=== PATIENT | female | born 1955 | race Caucasian/White ===

== ENCOUNTER 2016-04-22 13:06 | Emergency (ER) | payer OTHER ==
[2016-04-22 13:11] VITALS: TEMP 97.5
--- NOTE | 2016-04-22 14:10 | EDPHY ---
H & P Stated Complaint: feels like she needs a paracentesis, last was 2.5 weeks ago @ [facility] [place] Source: Patient Exam Limitations: No limitations - Personal History Current Tetanus/Diphtheria Vaccine: Yes Current Tetanus Diphtheria and Acellular Pertussis (TDAP): Yes - Medical/Surgical History Hx Asthma: No Hx Chronic Respiratory Disease: No Hx Diabetes: No Hx Cardiac Disease: No Hx Renal Disease: No Hx Cirrhosis: Yes Hx Alcoholism: Yes Hx HIV/AIDS: No Hx Splenectomy or Spleen Trauma: No Other PMH: pmh- cirrhosis, etoh (sober) - Social History Smoking Status: Never smoked Time Seen by Provider: 04/22/16 13:58 HPI/ROS: CHIEF COMPLAINT: Recurrent ascites HISTORY OF PRESENT ILLNESS: The patient presents to the ED with recurrent ascites. She has a history of end-stage liver disease from alcohol abuse. The patient reports he was unable to schedule a paracentesis through her regular GI doctor. She reports her last paracentesis was approximately 2 and half weeks ago. The patient denies significant dyspnea. She has no complaints of fever or severe abdominal pain. She denies dysuria or additional acute complaints. The patient tells me that she recently changed insurance and reportedly cannot be seen by her regular electrical assembly supervisor anymore. She has not yet re- established care with a new electrical assembly supervisor. REVIEW OF SYSTEMS: A comprehensive 10 point review of systems is otherwise negative aside from elements mentioned in the history of present illness. (Dwayne Cotton) - Physical Exam Exam: General Appearance: Thin female, no acute distress Eyes: Pupils equal and round no pallor or injection ENT, Mouth: Mucous membranes moist Respiratory: There are no retractions, lungs are clear to auscultation Cardiovascular: Regular rate and rhythm Gastrointestinal: Distended, tense ascites, no significant peritoneal signs Neurological: A&O, normal motor function, normal sensory exam, normal cranial nerves Skin: Warm and dry, no rashes Musculoskeletal: Neck is supple nontender Extremities: symmetrical, full range of motion Psychiatric: Patient is oriented X 3, there is no agitation (Dwayne Cotton) Constitutional: Initial Vital Signs Temperature (C) 36.4 C 04/22/16 13:06 Heart Rate 103 H 04/22/16 13:06 Respiratory Rate 18 04/22/16 13:06 Blood Pressure 154/92 H 04/22/16 13:06 O2 Sat (%) 97 04/22/16 13:06 O2 Delivery Mode Room Air Allergies/Adverse Reactions: Penicillins Allergy (Verified 04/22/16 13:07) Home Medications: Medication Instructions Recorded Furosemide 04/22/16 Spironolactone 04/22/16 Medical Decision Making ED Course/Re-evaluation: The patient presents the emergency department with recurrent tense ascites from chronic liver disease. She clinically has no evidence of peritonitis. I have ordered a therapeutic paracentesis on the patient at 2:00 p.m.. Patient has been given the contact number of our on-call electrical assembly supervisor. I do anticipate the patient will be able to be discharged from the emergency department following her paracentesis. The patient will be turned over to Dr. Marinelli pending her paracentesis. Plan will be for discharge to home following an expected uneventful paracentesis. (Dwayne Cotton) Patient returned from IR Paracentesis 6.7 L removed. Tolerated well. No low BP. No complaints. Abd soft nt. Getting Albumin replacement, then home. Denies Pain, fever/vomiting. Feels much better. (Nathaniel Marinelli) Differential Diagnosis: Differential diagnosis considered includes spontaneous bacterial peritonitis, refractory ascites, congestive heart failure (Dwayne Cotton) - Data Points Laboratory Results: Laboratory Results 04/22/16 14:10 04/22/16 14:10 Medications Given: Discontinued Medications Albumin Human (Flexbumin 25 % (Premix)) 200 mls @ 0 mls/hr IV ONCE ONE PRN Reason: As Directed Stop: 04/22/16 18:17 Last Admin: 04/22/16 18:35 Dose: 200 mls Departure - Departure Disposition: Home, Routine, Self-Care Clinical Impression: Cirrhosis, Ascites Condition: Good Instructions: Ascites (ED) Additional Instructions: 1. Please follow up with our on-call electrical assembly supervisor if you are unable to be seen by your regular electrical assembly supervisor secondary to insurance reasons. You have been given the contact information. 2. Please return to the ED for markedly worsening pain, fever, vomiting or other concerns. Referrals: Lam Frazier MD [Medical Doctor] - As per Instructions
[2016-04-22 14:37] LABS: % IMMATURE GRANULYOCYTES 0.4 % (0.0-1.1); ABSOLUTE IMMATURE GRANULOCYTES 0.03 10^3/uL (0.00-0.10); ADD DIFF? NO; ADD MORPH? NO; ADD SCAN? NO; ATYPICAL LYMPHOCYTE FLAG 10 (0-99); FRAGMENT RBC FLAG 0 (0-99); HEMATOCRIT 38.6 % (38.0-47.0); HEMOGLOBIN 13.5 g/dL (12.6-16.3); LEFT SHIFT FLG 0 (0-99); LIPEMIA HEMOLYSIS FLAG 90 (0-99); MEAN CELL HEMOGLOBIN 34.8 pg (27.9-34.1); MEAN CELL VOLUME 99.5 fL (81.5-99.8); MEAN PLATELET VOLUME 9.2 fL (8.7-11.7); PLATELET CLUMPS FLAG 0 (0-99); PLATELET COUNT 178 10^3/uL (150-400); RED BLOOD CELL COUNT 3.88 10^6/uL (4.18-5.33); RED CELL DISTRIBUTION WIDTH 14.9 % (11.5-15.2)
[2016-04-22 14:43] LABS: INR 1.25 (0.83-1.16); PROTIME(PATIENT) 15.7 SEC (12.0-15.0)
[2016-04-22 14:52] LABS: ANION GAP 5 mEq/L (8-16); CALCIUM 8.3 mg/dL (8.5-10.4); CARBON DIOXIDE 29 mEq/l (22-31); CHLORIDE 97 mEq/L (97-110); CREATININE 0.5 mg/dL (0.6-1.0); GLOMERULAR FILTRATION RATE > 60; GLUCOSE 137 mg/dL (70-100); SODIUM 131 mEq/L (134-144)
[2016-04-22 14:53] VITALS: RESP 16
[2016-04-22] MEDS ORDERED: NA BICARBONATE 50 MEQ/50 ML VIAL ONE (16:02)
[2016-04-22] MEDS ORDERED: LIDOCAINE 1% 30 ML SDV ONE (16:02)
[2016-04-22] MEDS ORDERED: ALBUMIN 25% 200 ML IV ONE (18:16)
--- NOTE | 2016-04-22 18:21 | US ---
Ultrasound-guided paracentesis Indication: Recurrent effusion. Informed consent: Obtained from the patient. Risks and benefits were discussed. Crosscutting Measure: Patient's current list of medications including all known prescriptions, over- the-counters, herbals, and vitamin/mineral/dietary supplements are reviewed. Medications' name, dosa ge, frequency, and route of administration are confirmed. The patient is a non-smoker. Prophylactic Antibiotic: Cefazolin was not ordered and administered for antimicrobial prophylaxis be cause it was not medically necessary. VTE Prophylaxis: There is not an order for VTE prophylaxis to be given within 24 hours of the proced ure end time. VTE prophylaxis was not given because it was not medically necessary. Technique: Patient was placed in supine position. A "timeout" procedure was performed to identify t he correct patient and the correct procedure. 1% Xylocaine was used for local anesthetic. All [place] ents of maximal sterile barrier technique including cap, mask, sterile gown, sterile gloves, large st erile sheet, hand hygiene, and 2% chlorhexidine for cutaneous antisepsis, followed. Ultrasound evaluation of potential access site was performed. A permanent recording was created for the patient's record. When ultrasound is used, sterile gel and probe covers are used. Right lower quadrant approach was chosen. A 6-Bengali Yueh needle was inserted into the abdomen, and p aracentesis was performed. A total of 6.7 liters were drained. A post drainage ultrasound shows very little residual fluid. Patient tolerated the procedure well. Impression: Right lower quadrant ultrasound-guided paracentesis yielding 6.7 liters. Plan: Return to Emergency Department for albumin.
[2016-04-22 19:10] VITALS: BP 134/71; PULSE 83; O2SAT 98
== END 2016-04-22 19:09 | disposition home or self-care (01) ==
PROC: 0W9H3ZZ Drainage of Retroperitoneum, Percutaneous Approach (ICD-10-PCS; principal; 2016-04-22)
DX: R18.8 Other ascites (principal); K74.60 Unspecified cirrhosis of liver
CPT/HCPCS: 96374; P9047

== ENCOUNTER → 2016-04-26 | Outpatient (CLI) | payer OTHER ==
[~2016-04-26] MED LIST: ALBUMIN 25% 100 ML SOLN IV ONE; LIDOCAINE 1% 30 ML SDV ONE; NA BICARBONATE 50 MEQ/50 ML VIAL ONE
--- NOTE | 2016-04-26 15:29 | US ---
Ultrasound-Guided Paracentesis History: Ascites. Crosscutting Measure #226: Current tobacco user: no. Informed consent was obtained. The possibility of infection, bleeding, and bowel injury were discusse d. Technique: A dominant pocket of ascitic fluid was localized in the left lower quadrant. The skin was then prepped and draped in sterile fashion. Local and deep anesthesia was applied with 1% lidocaine. A small skin rosette was applied through which the paracentesis catheter was inserted into the ascitic fluid. 8000 mL of fluid were removed using vacuum technique. The fluid was serous. At the end of the procedure, the catheter was removed, a sterile bandage applied, and the patient discharged from the [facility]. A specimen was sent to the Laboratory for bacteriology and cytology. Impression: Successful 8000 mL paracentesis with ultrasound guidance.
== END ==
LOC: FIMAGING 13:09
PROVIDERS: ATTEND Internal Medicine
PROC: 0W9F3ZZ Drainage of Abdominal Wall, Percutaneous Approach (ICD-10-PCS; principal; 2016-04-26)
DX: R18.8 Other ascites (principal)
CPT/HCPCS: P9047

== ENCOUNTER → 2016-05-09 | Outpatient (CLI) | payer OTHER ==
[~2016-05-09] MED LIST changes: -LIDOCAINE 1% 30 ML SDV ONE
== END ==
LOC: FIMAGING 08:52
PROVIDERS: ATTEND Internal Medicine
PROC: 0W9G3ZZ Drainage of Peritoneal Cavity, Percutaneous Approach (ICD-10-PCS; principal; 2016-05-09)
DX: R18.8 Other ascites (principal)
CPT/HCPCS: P9047

== ENCOUNTER → 2016-05-23 | Outpatient (CLI) | payer OTHER ==
[~2016-05-23] MED LIST changes: -ALBUMIN 25% 100 ML SOLN IV ONE; +LIDOCAINE 1% 30 ML SDV ONE
== END ==
LOC: FIMAGING 08:53
PROVIDERS: ATTEND Internal Medicine
PROC: 0W9G3ZZ Drainage of Peritoneal Cavity, Percutaneous Approach (ICD-10-PCS; principal; 2016-05-23)
DX: K70.31 Alcoholic cirrhosis of liver with ascites (principal)

== ENCOUNTER → 2016-06-06 | Outpatient (CLI) | payer OTHER | LOC: FIMAGING 09:40 | PROVIDERS: ATTEND Internal Medicine | PROC: 0W9F3ZZ Drainage of Abdominal Wall, Percutaneous Approach (ICD-10-PCS; principal; 2016-06-06) | DX: R18.8 Other ascites (principal) ==

== ENCOUNTER → 2016-06-27 | Outpatient (CLI) | payer OTHER ==
[~2016-06-27] MED LIST changes: -LIDOCAINE 1% 30 ML SDV ONE
== END ==
LOC: FIMAGING 09:18
PROVIDERS: ATTEND Internal Medicine
DX: R18.8 Other ascites (principal)

== ENCOUNTER → 2016-09-05 | Outpatient (CLI) | payer OTHER | LOC: FIMAGING 08:28 | PROVIDERS: ATTEND Radiology Diagnostic Radiology | PROC: 0W9F3ZZ Drainage of Abdominal Wall, Percutaneous Approach (ICD-10-PCS; principal; 2016-09-05) | DX: R18.8 Other ascites (principal) ==

== ENCOUNTER → 2016-10-01 | Outpatient (CLI) | payer OTHER | LOC: FIMAGING 08:01 | DX: Z12.31 Encounter for screening mammogram for malignant neoplasm of breast (principal) | CPT/HCPCS: G0202 ==

== ENCOUNTER → 2016-10-11 | Outpatient (CLI) | payer OTHER | LOC: FIMAGING 08:01 | PROVIDERS: ATTEND Internal Medicine | DX: K70.31 Alcoholic cirrhosis of liver with ascites (principal); R18.8 Other ascites; K80.20 Calculus of gallbladder without cholecystitis without obstruction ==

== ENCOUNTER → 2017-03-05 | Outpatient (CLI) | payer OTHER | LOC: FIMAGING 08:20 | PROVIDERS: ATTEND Family Medicine | DX: K80.20 Calculus of gallbladder without cholecystitis without obstruction (principal); K70.30 Alcoholic cirrhosis of liver without ascites ==

== ENCOUNTER 2018-08-25 14:28 | Emergency (ER) | payer OTHER | END 2018-08-25 16:15 | disposition home or self-care (01) ==

== ENCOUNTER → 2018-08-31 | Outpatient (CLI) | payer OTHER | LOC: FIMAGING 10:38 ==

== ENCOUNTER → 2018-09-15 | Outpatient (CLI) | payer OTHER | LOC: FIMAGING 10:55 ==